=== PATIENT | male | born 1965 | race Caucasian/White ===

== ENCOUNTER 2023-03-06 21:19 | Emergency (ER) | payer MEDICAID ==
[~2023-03-06] VITALS: Ht 182.9 cm; Wt 127.0 kg
[2023-03-06] MEDS ORDERED: LANTUS100 UNIT (22:18)
[2023-03-06] MEDS ORDERED: JANUVIA100 MG PO (22:18)
[2023-03-06] MEDS ORDERED: METFORMIN500 M2 PO (22:19)
[2023-03-06] MEDS ORDERED: FLEXERIL5 M1 PO (22:19)
[2023-03-06] MEDS ORDERED: [UNRECOGNIZED DRUG - REMARK] (22:20)
[2023-03-06] MEDS ORDERED: FENOFIBRATE (22:20)
[2023-03-06] MEDS ORDERED: LORTAB 1010 MG PO (23:47)
[2023-03-07 00:50] VITALS: BP 126/78
[2023-03-07] MEDS ORDERED: LORTAB 1010 MG PO (01:40)
== END 2023-03-07 00:50 | disposition home or self-care (01) ==
LOC: ED 21:19
DX: S83.91XA Sprain of unspecified site of right knee, initial encounter (principal); I10 Essential (primary) hypertension; E11.9 Type 2 diabetes mellitus without complications; G40.909 Epilepsy, unspecified, not intractable, without status epilepticus; Z79.84 Long term (current) use of oral hypoglycemic drugs; Z79.4 Long term (current) use of insulin; X50.0XXA Overexertion from strenuous movement or load, initial encounter